=== PATIENT | male | born 1960 | race Caucasian/White ===

== ENCOUNTER → 2019-04-30 | Outpatient (CLI) | payer OTHER, SELFPAY ==
--- NOTE | 2019-04-30 10:32 | RAD_ITS ---
STUDY: X-RAY - LEFT HAND REASON FOR EXAM: Male, 59 years old. Arthritis. TECHNIQUE: 3 view(s) of the hand. COMPARISON: None. FINDINGS: Suboptimally seen radiocarpal articulation. Normal distal radioulnar joint. Normal visualized carpal bones. There is degenerative joint disease of the scaphotrapezium / trapezoid articulation. The remainder of the carpal articulations are normal. There is degenerative arthrosis of the carpometacarpal (CMC) articulation of the thumb. Normal second through fifth carpometacarpal joints. Normal metacarpi. Mild narrowing of the metacarpophalangeal joint of the thumb. There is degenerative arthrosis of the interphalangeal joint of the thumb with articular joint space narrowing. Normal proximal and distal phalanges of the thumb. There is degenerative arthrosis involving the second and third metacarpophalangeal joints. There is mild multilevel articular joint space narrowing of the proximal and distal interphalangeal joints of the second through fifth fingers, but without erosive changes or periarticular soft tissue swelling. Normal phalanges of the second through fifth fingers. The soft tissue structures are unremarkable. RAD/Hand Min 3 Views IMPRESSION: Degenerative joint disease of the hand and wrist, as described above. Electronically Signed: Molly Cuenca MD at 0:51 EDT , Service support ,
--- NOTE | 2019-04-30 10:32 | RAD_ITS ---
HISTORY: HISTORY: ARTHRITIS, BILATERAL HAND PAIN XR Hand Min 3 Views COMPARISON: None FINDINGS: # of images incl. paperwork: 3 3 views of the right hand. Findings: No fracture or subluxation. No soft tissue abnormality. Joint space narrowing is present within the wrist and hand. Disease is greatest at the first second and third metacarpal phalangeal joints. There is bony remodeling, loss of joint space, cortical sclerosis, and osteophytes. Bone mineral density is normal.. No radiopaque foreign body. RAD/Hand Min 3 Views IMPRESSION: Arthritis is present within the hand. It is most likely osteoarthritis. Due to the distribution been most severe at the second and third metacarpal phalangeal joints, the possibility of arthritis associated with hemachromatosis could be considered.. at 0315 Reported and signed by: Shabbir Durán MD Electronically Signed: Shabbir Durán MD at 3:14 EDT Tel , Service support ,
[2019-04-30 12:31] LABS: Absolute Lymphocyte Count 3.74 X10^3/uL (0.83-4.51); Absolute Neutrophil Count 3.8 X10^3/uL (2.0-7.7); Basophil# 0.06 X10^3/uL; Basophil% 0.7 % (0-1); Eosinophil# 0.12 X10^3/uL; Eosinophils% 1.4 % (0-5); Hemoglobin 15.4 g/dL (13.0-16.5); Lymphocyte # 3.74 X10^3/ul (4.0); Lymphocyte % 43.2 % (19-41); Mean Corp Hgb Conc 32.8 g/dL (32-36); Mean Corpuscular Hgb 31.7 pg (27.0-32.0); Mean Corpuscular Volume 96.7 fL (80-94); Monocyte# 0.87 X10^3/uL; Monocyte% 10.1 % (0-10); NRBC Flagged by Analyzer 0 % (0-5); Neutrophil % 43.9 % (47-70); Platelet Count 231 K/mm3 (150-450); RBC Distribution Width CV 13.3 % (11.6-14.6); RBC Distribution Width SD 47.8 fl (35.1-43.9); Red Blood Count 4.86 M/mm3 (4.6-6.2); White Blood Count 8.7 K/mm3 (4.4-11.0)
[2019-04-30 12:55] LABS: Erythrocyte Sedimentation Rate 14 mm/hr (0-20)
[2019-04-30 12:59] LABS: ALB/GLOB Ratio 1.1 RATIO (0.9-2.4); AST(SGOT) 37 U/L (15-37); Alanine Aminotransfer ALT/SGPT 71 U/L (16-61); Albumin, Serum 3.7 g/dL (3.2-5.0); Alkaline Phosphatase 140 U/L (45-117); Anion Gap 7 (5-15); BUN 21 mg/dL (7-18); BUN/Creat Ratio 23.7 RATIO (10-20); CRP < 2.90 mg/L (0.0-3.0); Calcium,Total 8.9 mg/dL (8.5-10.1); Chloride 104 mmol/L (98-107); Creatinine, Serum 0.89 mg/dL (0.70-1.30); EST Glomerular Filtration Rate 93 mL/min (>60); Est Glom Filt Rate - Afr Amer 113 mL/min (>60); Globulin 3.5 g/dL (2.2-4.2); Glucose 96 mg/dL (74-106); Potassium 4.4 mmol/L (3.5-5.1); Protein, Total 7.2 g/dL (6.4-8.2); Rheumatoid Factor < 10.0 IU/mL (<15); Sodium Level 140 mmol/L (136-145)
[2019-04-30 13:36] LABS: Hepatitis B Surface Antibody Non-Reactive; Hepatitis B Surface Antigen Non-Reactive (Nonreactive); Hepatitis C Antibody Non-Reactive (Nonreactive)
[2019-05-03 04:06] LABS: QNTFERON TB Mitogen Value > 10.00 IU/mL (.); QNTFERON TB Nil Value 0.04 IU/mL (.); QNTFERON TB1+ Ag Value 0.05 IU/mL (.); QNTFERON TB2+ Ag Value 0.04 IU/mL (.)
[2019-05-05 10:25] LABS: CCP IgG Antibodies 5 units (0-19); Hepatitis B Core AB IgM Negative (Negative); QNTIFERON TB Positive Criteria Negative (Negative)
== END | disposition home or self-care (01) ==
LOC: MTLAB 10:27
PROVIDERS: Referring Provider Internal Medicine Rheumatology; Visit Provider Internal Medicine Rheumatology
DX: M06.4 Inflammatory polyarthropathy (principal); M19.041 Primary osteoarthritis, right hand; M47.812 Spondylosis without myelopathy or radiculopathy, cervical region; J44.9 Chronic obstructive pulmonary disease, unspecified
CPT/HCPCS: 36415; 73130; 80053; 85025; 85652; 86140; 86200; 86431; 86480; 86705; 86706; 86803; 87340